=== PATIENT | female | born 2000 | race Caucasian/White ===

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

== ENCOUNTER 2022-05-15 17:53 | Outpatient (REF) | payer MEDICAID, SELFPAY ==
[2022-05-17 15:10] LABS: Chlamydia Result Negative (Negative); GC Result Negative (Negative)
== END 2022-05-15 17:54 | disposition home or self-care (01) ==
LOC: LBN 17:53
PROVIDERS: PCP Nurse Practitioner Pediatrics; Visit Provider Nurse Practitioner Women's Health
DX: Z11.3 Encounter for screening for infections with a predominantly sexual mode of transmission (principal)
CPT/HCPCS: 87491; 87591

== ENCOUNTER 2022-08-16 16:08 | Emergency (ER) | payer MEDICAID, SELFPAY ==
--- NOTE | 2022-08-16 16:00 | RT.EKG_ITS ---
APPROVED REPORT Exam: Resting ECG Reason for Exam: syncope Patient Location: E HR:68 bpm ECG Measurements Heart Rate 68 AXIS TN 112 P 37 QRSd 95 QRS -53 QT 384 T 55 QTc 407 Conclusion Sinus rhythm...normal P axis, V-rate 60- 99 Left axis deviation...QRS axis (-30,-90) Physician: no stemi, no delta waves, epsilon wave
[2022-08-16] MEDS: Normal Saline 1,000 ML 1000 ML IV (16:10)
[2022-08-16 16:11] VITALS: BP 104/59; PULSE 87; RESP 16; TEMP 36.4; O2SAT 98
[2022-08-16 16:16] VITALS: RESP 18
[2022-08-16 16:54] LABS: Abs Immature Grans 0.03 10^3/uL (0.0-0.06); Absolute Basophil Count 0.03 10^3/uL (0.0-0.2); Absolute Eosinophil Count 0.13 10^3/uL (0.0-0.7); Absolute Lymphocyte Count 3.53 10^3/uL (1.2-3.4); Absolute Monocyte Count 0.56 10^3/uL (0.1-0.8); Basophils % 0.3; Eosinophils % 1.3; HCT 40.9 % (36.0-46.0); HGB 13.9 g/dL (11.2-15.7); Immature Grans % 0.3; Lymphocytes % 34.7; MCV 91 fL (80-95); MPV 10.3 fL (8.0-11.0); Monocytes % 5.5; Neutrophils % 57.9; Platelet Count 241 10^3/uL (130-400); RBC 4.49 10^6/uL (3.93-5.22); RDW 12.6 % (11.7-14.6); RDW-SD 41.9 fL; WBC 10.18 10^3/uL (4.4-10.8)
--- NOTE | 2022-08-16 17:04 | W.ED.GENAD ---
Discharge Plan Disposition Patient Disposition: Home Condition: Good Discharge Details Chief Complaint: [id number] Clinical Impression: Syncope Primary Care Provider: Joyce Mari ED Provider: Lalito Crocker Home Meds and New Rx's Prescriptions: No Action Mirena 20 mcg/24 hours (7 yrs) 52 mg intrauterine device 1 device intrauterine ONCE Qty: 1 0RF Discharge Instructions Instructions: Syncope (ED) Additional Instructions: At this time your work-up has returned normal and is very reassuring. Please drink 10 to 12 cups of water per day, stay well-hydrated, stand up slowly. If you continue to have lightheadedness, please return for reevaluation or contact your primary care provider for further outpatient monitoring with a prolonged 48-hour cardiac Holter monitor. If you notice any worsening of your symptoms, or any new symptoms such as vomiting, diarrhea, fever, chills, shortness of breath, chest pain, numbness, weakness, or fainting , please return immediately to the emergency department for reevaluation. Please follow up with your primary care provider as soon as possible for reassessment and reevaluation. As always, it was a pleasure participating in your medical care today. Referrals: Joyce Mari, MALIKA [Primary Care Provider] - Medical Decision Making 21-year-old female with no significant past medical history aside for heavy periods, intrauterine contraception, presents today for evaluation of syncope. 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 She hit her right cheek. She was down for just a moment. No other significant trauma. She denies numbness tingling or weakness. She had EMS called, when they arrived she was slightly hypotensive, but this normalized by arrival. She denies chest pain or shortness of breath. No pleuritic chest pain. She denies any history of blood clots, long trips, surgeries or procedures. She has had an episode of syncope in the past when she was young, but no other episodes. No family history of sudden cardiac , or history of cardiac dysrhythmias. Exam demonstrates well-appearing female, no neurologic deficits, no evidence of significant trauma. No headache. Symptoms inconsistent with intracranial bleed. Symptoms likely secondary to mild dehydration. Patient states that she has not drunk much throughout the day at all. Cardiac etiology and blood clot less likely. Will get D-dimer, troponin, monitor closely and reassess. EKG shows no significant abnormalities. 5:49 PM Patient feels well, laboratory work-up unremarkable. D-dimer normal, cardiac work-up shows no significant abnormalities. Patient feels well and would like to go home. Patient was rehydrated. Symptoms inconsistent at this time with fatal dysrhythmia, PE, ACS, or significant electrolyte abnormality. Symptoms at this time are clinically consistent with a syncope likely related to mild dehydration. Will recommend continued hydration at home. Discussed red flags which to return. I have extensively reviewed the treatment plan and discharge instructions with the patient. I have addressed all patient concerns at this time. The patient was made aware of what symptoms to monitor for that would warrant a return to the emergency department. Discussed the plan with the patient, they demonstrate verbal understanding and agreement with our assessment and plan at this time. The documentation in this chart was dictated using [employer] dictation software. Please excuse any dictation errors. Sign Out No HPI General Date/Time Provider Initiated Documentation: 08/16/22 16:13. HPI Narrative: 21-year-old female with no significant past medical history aside for heavy periods, intrauterine contraception, presents today for evaluation of syncope. 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 She hit her right cheek. She was down for just a moment. No other significant trauma. She denies numbness tingling or weakness. She had EMS called, when they arrived she was slightly hypotensive, but this normalized by arrival. She denies chest pain or shortness of breath. No pleuritic chest pain. She denies any history of blood clots, long trips, surgeries or procedures. She has had an episode of syncope in the past when she was young, but no other episodes. No family history of sudden cardiac , or history of cardiac dysrhythmias. Related Data Home Medications Medication Instructions Recorded Confirmed levonorgestrel 20 mcg/24 hours (8 1 device intrauterine ONCE #1 ea 05/17/22 08/16/22 yrs) 52 mg intrauterine device (Mirena) Previous Rx's Medication Instructions Recorded levonorgestrel 20 mcg/24 hours (8 1 device intrauterine ONCE #1 ea 05/17/22 yrs) 52 mg intrauterine device (Mirena) Allergies Allergy/AdvReac Type Severity Reaction Status Date / Time No Known Allergies Allergy Verified 08/16/22 16:16 General Stated Complaint: [id number] KT: 3 Review of Systems All systems reviewed & are unremarkable except as noted in HPI and below PFSH All Active Problems (Updated 08/16/22 @ 17:51 by Lalito Crocker DO) Syncope (Chronic) IUD surveillance (Acute ~05/2022) Mirena Unintended weight loss (Acute) Insomnia (Acute) Anxiety (Chronic) Cannabis use disorder, moderate, in controlled environment (Acute) Positive depression screening (Acute) Pediatric body mass index (BMI) of 85th percentile to less than 95th percentile for age (Acute 05/29/17) Medical History Heavy periods Managed with Mirena Family History Mother Anxiety and depression Father No problems noted. Sister No problems noted. Social History Smoking/Tobacco Use Status: Current every day Tobacco Type: e-cigarettes Smokeless tobacco user: other Second Hand Exposure: Yes Smoking risk assessment performed?: Yes Alcohol Intake: never Drug use: Never Substance use type: marijuana Education Level: high school Details: [employer] 2019 Pets and animals: Yes Pets and animals: cat(s) and dog(s) Do you feel safe at home: Yes Do you feel safe in your relationship?: Yes Additional Social history: has a twin sister Aissatou Female Reproductive History Menstrual control method: implanted History History 0 Para Hx # Term Pregnancies Multiple births Hx # Pregnancies Ectopic pregnancies AB induced Hx Number of Living Children AB spontaneous Exam Narrative Exam Narrative: 1.Const: Well-nourished, Well-developed, appearing stated age 2.Eyes: PERRL, no conjunctival injection, and symmetrical lids. 3.ENT: Atraumatic external nose and ears. Moist MM. Neck: Symmetric, trachea midline, No thyromegaly. There is no evidence of raccoon eyes, rowell sign, CSF rhinorrhea, mastoid tenderness, cranial crepitus, hemotympanum, exophthalmos, or hyphema. Patient demonstrates intact dentition with no signs of tooth avulsion or fracture, no signs of jaw deformity, no evidence of a LeFort's fracture, with an intact palate, nose and orbital region. There is no evidence of a nasal septal hematoma. No proptosis. Jaw closes symmetrically. Airway is clear. 4.CVS: +S1/S2, No murmurs or gallops. Peripheral pulses 2+ and equal in all extremities. Brisk capillary refill in all extremities. 5.RESP: Unlabored respiratory effort. Clear to auscultation bilaterally. No wheezes rales or rhonchi 6.GI: Soft, Nontender/Nondistended, No hepatosplenomegaly. No guarding or rebound. 7.MSK: Normocephalic/Atraumatic, Extremities w/o deformity or ttp No cyanosis or clubbing, Normal movement of all extremities 8.Skin: Warm, Dry. No rashes or lesions. 9.Neuro: health outcomes liaison II-XII grossly intact. Sensation grossly intact, no focal neurologic deficits. All 6 cardinal planes of vision are fully intact. No evidence of rotatory or vertical nystagmus. The patient demonstrated a normal [id number]-gwis-epzybj, good dexterity. There was no evidence of dysdiadochokinesia. Patient was able to ambulate without difficulty. There was no wide-based gait. Romberg testing was normal. [id number] testing was normal. Sensation was intact bilaterally as well as muscle strength bilaterally for all extremities. Patient was able to verbalize butter cup with no slurring, or miss pronunciation. 10.Psych: (AAO) x3. Appropriate mood and affect Course Vital Signs Vital signs: Vital Signs Temperature 36.4 C 08/16/22 16:11 Pulse 87 08/16/22 16:11 Respiratory Rate 16 08/16/22 16:11 Blood Pressure 104/59 L 08/16/22 16:11 Pulse Oximetry 98 08/16/22 16:11 Temperature 36.4 C 08/16/22 16:11 Temperature Source Oral 08/16/22 16:11 Pulse 87 08/16/22 16:11 Respiratory Rate 18 08/16/22 16:16 Respiratory Effort Non-Labored 08/16/22 16:16 Respiratory Depth Normal 08/16/22 16:16 Respiratory Pattern Normal 08/16/22 16:16 Blood Pressure 104/59 L 08/16/22 16:11 Blood Pressure Position Sitting 08/16/22 16:11 Pulse Oximetry 98 08/16/22 16:11 Oxygen Delivery Method Room Air 08/16/22 16:11 Oxygen Flow Rate 0 08/16/22 16:11 Pain Level 2 08/16/22 16:11 Lab/Test Results Lab/Test Results: Laboratory Tests Range/Units 08/16/22 16:20 WBC (4.4-10.8) 10^3/uL 10.18 RBC (3.93-5.22) 10^6/uL 4.49 Hgb (11.2-15.7) g/dL 13.9 Hct (36.0-46.0) % 40.9 MCV (80-95) fL 91 MCH (27.0-33.0) pg 31.0 MCHC (32.0-36.0) % 34.0 RDW (11.7-14.6) % 12.6 Plt Count (130-400) 10^3/uL 241 MPV (8.0-11.0) fL 10.3 Immature Gran % 0.3 Neutrophils % 57.9 Lymphocytes % 34.7 Monocytes % 5.5 Eosinophils % 1.3 Basophils % 0.3 Nucleated RBC % (0.0-0.3) % 0.0 Absolute Neutrophils (1.2-6.7) 10^3/uL 5.90 Absolute Lymphocytes (1.2-3.4) 10^3/uL 3.53 H Absolute Monocytes (0.1-0.8) 10^3/uL 0.56 Absolute Eosinophils (0.0-0.7) 10^3/uL 0.13 Absolute Basophils (0.0-0.2) 10^3/uL 0.03 POCUS Exam (ED) Limited Cardiac Exam DATE OF EXAM: 08/16/22 TIME OF EXAM: 17:08 PROVIDER THAT PERFORMED THE STUDY: Lalito Crocker REASON FOR EXAM: Syncope VISUALIZED STRUCTURES: Left atrium, Left ventricle and Right ventricle VIEW OBTAINED: Parasternal long-axis PERTINENT FINDINGS/IMPRESSION: No apparent abnormalities Exam complete
[2022-08-16 17:15] LABS: ALT 20 U/L (14-59); AST 14 U/L (15-37); Albumin 4.2 g/dL (3.4-5.0); Alkaline Phosphatase 68 U/L (46-116); Anion Gap 7.7 mmol/L (3-11); BUN 13 mg/dL (7-18); Bilirubin, Total 0.5 mg/dL (0.2-1.0); CO2 28.3 mmol/L (21.0-32.0); CREATININE 0.8 mg/dL (0.55-1.02); Calcium 9.3 mg/dL (8.5-10.1); Chloride 101 mmol/L (98-107); Estimated GFR 108.78 (mL/min/1.73m2); Glucose 100 mg/dL (74-106); Potassium 3.4 mmol/L (3.5-5.1); Sodium 137 mmol/L (136-145); Total Protein 8.1 g/dL (6.4-8.2); Troponin I < 50 ng/L (<or=60)
[2022-08-16 17:26] LABS: D-Dimer 170 ng/mlFEU (<500)
[2022-08-16 17:55] LABS: Bilirubin Negative (Negative); Blood Negative (Negative); Clarity Clear (Clear); Glucose Negative (Negative); Ketones Negative (Negative); Leukocyte Esterase Negative (Negative); Nitrite Negative (Negative); Specific Gravity 1.025 (1.005-1.025); Urobilinogen 0.2 EU/dL (Up TO 0.2)
[2022-08-16 18:00] VITALS: BP 103/60; PULSE 81; RESP 16; TEMP 37; O2SAT 98
[2022-08-16 18:08] LABS: Epithelial Cells Many HPF (Negative); RBC 0-2 HPF (0-2); WBC 0-2 HPF (0-5)
[2022-08-16 18:09] LABS: Bacteria Few HPF (Negative); C & S Indicated? No/Sq. Contamination; Casts 0-2 Hyaline LPF (Negative); Crystals Negative HPF (Negative); Mucus Moderate (Negative)
== END 2022-08-16 18:41 | disposition home or self-care (01) ==
PROVIDERS: Emergency Provider Student in an Organized Health Care Education/Training Program; PCP Nurse Practitioner Pediatrics
DX: R55 Syncope and collapse (principal)
CPT/HCPCS: 80053; 81025; 93005; 93308; 96360; 99284; 81003; 81015; 84484; 85025; 85379; 93010

== ENCOUNTER 2023-01-26 17:02 | Emergency (ER) | payer MEDICAID, SELFPAY ==
[2023-01-26 17:07] VITALS: BP 122/80; PULSE 90; RESP 18; TEMP 36.8; O2SAT 99
--- NOTE | 2023-01-26 17:15 | DI.RAD_ITS ---
Exam(s) XR ELBOW LT COMPLETE EXAM: XR ELBOW LT COMPLETE CLINICAL HISTORY: left elbow pain. TECHNIQUE: 2D digital imaging was performed. Three views. COMPARISON: CR RIGHT WRIST COMPLETE from 03/21/2012 FINDINGS: BONES: No acute fracture is present. No bony destructive lesion is seen. JOINTS: The elbow is normally aligned. No joint effusion is seen. SOFT TISSUE: Normal. IMPRESSION: Unremarkable radiographs of the left elbow. DATA REPOSITORY: RADIATION DOSE DELIVERED:
--- NOTE | 2023-01-26 17:53 | ED.GENADUL_ITS ---
Discharge Plan Disposition Patient Disposition: Home Discharge Details Clinical Impression: Elbow pain, left Primary Care Provider: Suzette Rivas ED Provider: Jacque Barraza Home Meds and New Rx's Prescriptions: Continued Mirena 20 mcg/24 hours (7 yrs) 52 mg intrauterine device 1 device intrauterine ONCE Qty: 1 0RF Discharge Instructions Additional Instructions: Ibuprofen and Tylenol as needed for pain Rest your elbow Repeat x-ray in 1 week should you have persistent symptoms Referrals: Suzette Rivas MD [Primary Care Provider] - Discharge Data Discharge Date/Time-TO BE ENTERED AT DEPARTURE: 01/26/23 18:17 Medical Decision Making 22-year-old female presents with left elbow injury X-ray was ordered for further evaluation, does not show evidence of acute abnormality Per radiology interpretation and my review Radiology interpretation my review repeat x-ray in 1 week with persistent symptoms recommended Offered sling, patient declined Return precautions reviewed and patient expressed understanding HPI General Date/Time Provider Initiated Documentation: 01/26/23 17:18 . HPI Narrative: This 22-year-old female presents with report of fall on outstretched hand, injuring her left elbow at work just prior to arrival. Denies any additional injuries or chance of . Denies any strength or sensation change. Related Data Home Medications Medication Instructions Recorded Confirmed levonorgestrel 21 mcg/24 hours (8 1 device intrauterine ONCE #1 ea 05/17/22 08/16/22 yrs) 52 mg intrauterine device (Mirena) Previous Rx's Medication Instructions Recorded levonorgestrel 21 mcg/24 hours (8 1 device intrauterine ONCE #1 ea 05/17/22 yrs) 52 mg intrauterine device (Mirena) Allergies Allergy/AdvReac Type Severity Reaction Status Date / Time No Known Allergies Allergy Verified 01/26/23 17:15 General Stated Complaint: Orthopedic KT: 4 PFSH All Active Problems (Updated 01/26/23 @ 18:06 by BAYLEE Gil) Elbow pain, left (Acute) IUD surveillance (Acute ~05/2022) Mirena Unintended weight loss (Acute) Insomnia (Acute) Anxiety (Chronic) Cannabis use disorder, moderate, in controlled environment (Acute) Positive depression screening (Acute) Pediatric body mass index (BMI) of 85th percentile to less than 95th percentile for age (Acute 05/29/17) Medical History Heavy periods Managed with Mirena Family History Mother Anxiety and depression Father No problems noted. Sister No problems noted. Social History Smoking/Tobacco Use Status: Current every day Tobacco Type: e-cigarettes Smokeless tobacco user: other Second Hand Exposure: Yes Smoking risk assessment performed?: Yes Alcohol Intake: never Drug use: Never Substance use type: marijuana Education Level: high school Details: [employer] senior 2019 Pets and animals: Yes Pets and animals: cat(s) and dog(s) Do you feel safe at home: Yes Do you feel safe in your relationship?: Yes Additional Social history: has a twin sister Aissatou Female Reproductive History Menstrual control method: implanted History History 0 Para Hx # Term Pregnancies Multiple births Hx # Pregnancies Ectopic pregnancies AB induced Hx Number of Living Children AB spontaneous Exam Narrative Exam Narrative: Left elbow with mild tenderness, neurovascularly intact, no swelling, no tenderness to left shoulder and left wrist Course Vital Signs Vital signs: Vital Signs Temperature 36.8 C 01/26/23 17:07 Pulse 90 01/26/23 17:07 Respiratory Rate 18 01/26/23 17:07 Blood Pressure 122/80 01/26/23 17:07 Pulse Oximetry 99 01/26/23 17:07 Temperature 36.8 C 01/26/23 17:07 Temperature Source Oral 01/26/23 17:07 Pulse 90 01/26/23 17:07 Respiratory Rate 18 01/26/23 17:07 Respiratory Effort Normal, Non-Labored 01/26/23 17:09 Blood Pressure 122/80 01/26/23 17:07 Blood Pressure Position Sitting 01/26/23 17:07 Pulse Oximetry 99 01/26/23 17:07 Oxygen Delivery Method Room Air 01/26/23 17:07 Oxygen Flow Rate 0 01/26/23 17:07 Pain Level 6 01/26/23 17:07 Lab/Test Results Lab/Test Results: POC- Test(urine) Negative
--- NOTE | 2023-01-26 18:12 | DI.VRAD_ITS ---
PROCEDURE INFORMATION: Exam: XR Left Elbow Exam date and time: 01/26/2023 5:45 PM Age: 22 years old Clinical indication: Injury or trauma; Other: Left elbow pain TECHNIQUE: Imaging protocol: Radiologic exam of the left elbow. Views: 3 or more views. COMPARISON: No relevant prior studies available. FINDINGS: Bones/joints: Normal. Soft tissues: Normal. IMPRESSION: No acute findings. Dictated and Authenticated by: Hal Arredondo MD. Ordering:ANDREW Santillan MD
== END 2023-01-26 18:17 | disposition home or self-care (01) ==
PROVIDERS: Emergency Provider Physician Assistant; PCP Student in an Organized Health Care Education/Training Program
DX: M25.522 Pain in left elbow (principal)
CPT/HCPCS: 99283; 73080

== ENCOUNTER 2023-03-22 22:26 | Emergency (ER) | payer SELFPAY ==
[2023-03-22 22:31] VITALS: BP 117/62; PULSE 78; RESP 16; TEMP 35.9; O2SAT 98
[2023-03-22 22:43] LABS: Bilirubin Negative (Negative); Blood Large (Negative); Clarity Clear (Clear); Glucose Negative (Negative); Ketones Trace mg/dL (Negative); Leukocyte Esterase Negative (Negative); Nitrite Negative (Negative); Specific Gravity >= 1.030 (1.005-1.025); Urobilinogen 0.2 mg/dL (Up to 0.2)
--- NOTE | 2023-03-22 22:45 | DI.CT_ITS ---
Exam(s) CT ABDOMEN PELVIS WO EXAM: CT ABDOMEN PELVIS WO CLINICAL HISTORY: Flank pain, Hematuria. TECHNIQUE: Imaging Protocol: Axial computed tomography images with coronal and sagittal reformatted images were created and reviewed. Oral: / no COMPARISON: No exams were available for comparison FINDINGS: ABDOMEN: Lung Bases: Normal where visualized. Liver: Normal density. No measurable mass. Gallbladder and biliary tract: No radiodense calculus or dilation. Pancreas: Normal density, no abnormal calcifications or inflammatory process. Spleen: Normal. Kidneys: Normal size, contour and axis. No radiodense stones or obstructive uropathy. No masses seen. Adrenal glands: No masses seen. Lymph nodes: Within normal limits. Abdominal Aorta: Abdominal portion non-dilated. PELVIS: Bladder: Nearly empty. Question of wall thickening versus under distension. Bowel: No obstruction or bowel wall thickening. Moderate quantity of stool. Appendix normal. Radi opaque density seen in stomach and bowel of left mid abdomen likely ingested tablets. Quadrant Peritoneal cavity: No ascites, collection or mesenteric inflammatory response. Reproductive organs: IUD Bones: Within normal limits. IMPRESSION: No evidence of urinary tract calculi or hydronephrosis. Question of mild diffuse small ladder wall t hickening versus under distension. RADIATION DOSE DELIVERED: 555.88mGy.cm Total DLP DATA REPOSITORY: All CT scans at this facility are submitted to the National Radiology Data Registry (NRDR) Dose Index Registry (DIR) with the [employer] (ACR). RADIATION OPTIMIZATION: All CT scans at this facility use at least one of these dose optimization te chniques: automated exposure control; mA and/or kV adjustment per patient size (includes targeted exa ms where dose is matched to clinical indication); or iterative reconstruction.
--- NOTE | 2023-03-22 22:47 | ED.GENADUL_ITS ---
Discharge Plan Disposition Patient Disposition: Home Condition: Stable Discharge Details Clinical Impression: Dysuria, Hematuria Primary Care Provider: Suzette Rivas ED Provider: Rahel Ram Home Meds and New Rx's Prescriptions: No Action Mirena 20 mcg/24 hours (7 yrs) 52 mg intrauterine device 1 device intrauterine ONCE Qty: 1 0RF Discharge Instructions Instructions: Hematuria (ED), Dysuria (ED) Additional Instructions: Follow up with primary care provider in 3-5 days. Return to ED sooner if any worsening or concerns. Increase oral fluids. The antibiotic as directed with yogurt or probiotic. You have some blood in your urine however with your symptoms I am treating you for possible urinary tract infection. CT results are pending at this time. If we need to we will call you. Stand Alone Forms: Work Release Referrals: Keri Sultana DNP [NURSE PRACTITIONER] - 2 weeks Suzette Rivas MD [Primary Care Provider] - Discharge Data Discharge Date/Time-TO BE ENTERED AT DEPARTURE: 03/22/23 23:52 Medical Decision Making 22-year-old female presents with 3 days of dysuria hesitancy and noted hematuria. No vomiting. She has been taking Azo [id number]. Denies any other associated symptoms or complaints. She does have a history of anxiety insomnia does have an IUD. Urinalysis shows large blood, trace ketones, 100 protein negative for leukocytes or nitrites 10-[address] abdomen pelvis to rule out kidney stone. CT abdomen pelvis shows no kidney stones however does have a thickened bladder wall which could be cystitis which is correlating clinically with patient presentation. Patient given cephalexin treated for UTI. Discussed home care follow-up care if needed she verbalizes understanding. This text was generated using Kuap[employer] system, please disregard any oddities of phrase or misspellings. Lab Data Lab results reviewed: Yes I reviewed the patient's lab results. Labs: Laboratory Tests Range/Units 03/22/23 22:32 Urine Color (Yellow) Yellow Urine Clarity (Clear) Clear Urine pH (5-8) 6.0 Ur Specific [place] (1.005-1.025) >= 1.030 H Urine Protein (Negative) mg/dL 100 H Urine Ketones (Negative) mg/dL Trace H Urine Blood (Negative) Large H Urine Nitrite (Negative) Negative Urine Bilirubin (Negative) Negative Urine Urobilinogen (Up to 0.2) mg/dL 0.2 Ur Leukocyte Esterase (Negative) Negative Urine RBC (0-2) HPF 10-20 H Urine WBC (0-5) HPF 0-2 Ur Epithelial Cells (Negative) HPF Few Urine Crystals (Negative) HPF Negative Urine Bacteria (Negative) HPF Few Urine Casts (Negative) LPF Negative Urine Mucus (Negative) Negative Ur Culture Indicated? No Urine Glucose (Negative) mg/dL Negative HPI General Mode of arrival: ambulatory . Date/Time Provider Initiated Documentation: 03/22/23 22:40 . Limitations to Documentation: no limitations . Information obtained by: patient, RN notes reviewed and old records reviewed . HPI Narrative: 22-year-old female presents with 3 days of dysuria hesitancy and noted hematuria. No vomiting. She has been taking Azo [id number]. Denies any other associated symptoms or complaints. She does have a history of anxiety insomnia does have an IUD. Related Data Home Medications Medication Instructions Recorded Confirmed levonorgestrel 21 mcg/24 hours (8 1 device intrauterine ONCE #1 ea 05/17/22 03/22/23 yrs) 52 mg intrauterine device (Mirena) Previous Rx's Medication Instructions Recorded levonorgestrel 21 mcg/24 hours (8 1 device intrauterine ONCE #1 ea 05/17/22 yrs) 52 mg intrauterine device (Mirena) Allergies Allergy/AdvReac Type Severity Reaction Status Date / Time No Known Allergies Allergy Verified 03/22/23 22:39 General Stated Complaint: Urinary KT: 4 Review of Systems All systems reviewed & are unremarkable except as noted in HPI and below Genitourinary Genitourinary: Reports as per HPI, Reports hematuria, Reports flank pain (Bilateral lower back pain), Reports urinary hesitancy and Reports urinary urgency PFSH All Active Problems (Updated 03/22/23 @ 23:38 by Rahel Ram NP) Dysuria (Acute) Hematuria (Acute) IUD surveillance (Acute ~05/2022) Mirena Unintended weight loss (Acute) Insomnia (Acute) Anxiety (Chronic) Cannabis use disorder, moderate, in controlled environment (Acute) Positive depression screening (Acute) Pediatric body mass index (BMI) of 85th percentile to less than 95th percentile for age (Acute 05/29/17) Medical History Heavy periods Managed with Mirena Family History Mother Anxiety and depression Father No problems noted. Sister No problems noted. Social History Smoking/Tobacco Use Status: Current every day Tobacco Type: e-cigarettes Smokeless tobacco user: other Second Hand Exposure: Yes Smoking risk assessment performed?: Yes Alcohol Intake: current Alcohol Intake frequency: holidays/special occasions only Drug use: Occasionally Substance use type: marijuana Education Level: high school Details: [employer] senior 2019 Pets and animals: Yes Pets and animals: cat(s) and dog(s) Do you feel safe at home: Yes Do you feel safe in your relationship?: Yes Additional Social history: has a twin sister Aissatou Female Reproductive History Menstrual control method: implanted History History 0 Para Hx # Term Pregnancies Multiple births Hx # Pregnancies Ectopic pregnancies AB induced Hx Number of Living Children AB spontaneous Exam Narrative Exam Narrative: Constitutional: Alert and oriented x3. Appears stated age. Normal body habitus. Head: Normocephalic, no trauma. Eyes: Pupils PERRL, Red reflex noted, EOM's intact. Eyelids symmetrical without lesions, discharge, or swelling. ENT: Bilateral TM's WNL, External ear normal to inspection, no mastoid TTP, swelling, or erythema, Nasal turbinates WNL, no nasal discharge. Normal dentition, Posterior pharynx WNL, no exudate. Chest: RRR, Normal S1, S2, distal pulses intact. Resp: Lungs clear to auscultation bilaterally, no wheezes, rales, or rhonchi. Abdomen: Soft, non-distended, Normoactive bowel sounds all 4 quads. Musculoskeletal: Normal gait, 5/5 strength to all four extremities. Skin: No suspicious rashes or lesions. Capillary refill less than 2 sec. Neurologic: Cranial nerves II-XII intact. Alert and oriented x 3. Motor: No deficits noted. Sensory: Intact bilaterally all 4 extremities. Reflexes: DTR's intact bilaterally.. Hematologic/Lymphatic: No ecchymosis, no lymphadenopathy. Course Vital Signs Vital signs: Vital Signs Temperature 35.9 C L 03/22/23 22:31 Pulse 78 03/22/23 22:31 Respiratory Rate 16 03/22/23 22:31 Blood Pressure 117/62 03/22/23 22:31 Pulse Oximetry 98 03/22/23 22:31 Temperature 35.9 C L 03/22/23 22:31 Temperature Source Tympanic 03/22/23 22:31 Pulse 78 03/22/23 22:31 Respiratory Rate 16 03/22/23 22:31 Respiratory Effort Normal 03/22/23 22:31 Blood Pressure 117/62 03/22/23 22:31 Blood Pressure Position Sitting 03/22/23 22:31 Pulse Oximetry 98 03/22/23 22:31 Oxygen Delivery Method Room Air 03/22/23 22:31 Oxygen Flow Rate 0 03/22/23 22:31 Pain Level 4 03/22/23 22:40 Lab/Test Results Lab/Test Results: Laboratory Tests Range/Units 03/22/23 22:32 Urine Color (Yellow) Yellow Urine Clarity (Clear) Clear Urine pH (5-8) 6.0 Ur Specific [place] (1.005-1.025) >= 1.030 H Urine Protein (Negative) mg/dL 100 H Urine Ketones (Negative) mg/dL Trace H Urine Blood (Negative) Large H Urine Nitrite (Negative) Negative Urine Bilirubin (Negative) Negative Urine Urobilinogen (Up to 0.2) mg/dL 0.2 Ur Leukocyte Esterase (Negative) Negative Urine Glucose (Negative) mg/dL Negative
[2023-03-22 22:50] LABS: Bacteria Few HPF (Negative); C & S Indicated? No; Casts Negative LPF (Negative); Crystals Negative HPF (Negative); Epithelial Cells Few HPF (Negative); Mucus Negative (Negative); WBC 0-2 HPF (0-5)
[2023-03-22] MEDS: Ibuprofen 600 MG TAB PO (22:57)
[2023-03-22] MEDS: Cephalexin 500 MG CAP, 2 CAPS/BTL PO (23:49)
[2023-03-22] MEDS: Cephalexin 500 MG CAP PO (23:49)
--- NOTE | 2023-03-22 23:54 | DI.VRAD_ITS ---
PROCEDURE INFORMATION: Exam: CT Abdomen And Pelvis Without Contrast Exam date and time: 03/22/2023 11:08 PM Age: 22 years old Clinical indication: Other: Flank pain, hematuria TECHNIQUE: Imaging protocol: Computed tomography of the abdomen and pelvis without contrast. COMPARISON: No relevant prior studies available. FINDINGS: Lungs: The lungs are normal. There is no evidence of focal pulmonary consolidation. Pleural spaces: There is no evidence of pneumothorax. There are no pleural effusions present. Heart: The cardiac structures are normal. Liver: There are no focal liver lesions present. There is no evidence of intrahepatic or extrahepatic biliary ductal dilation. Gallbladder and bile ducts: The gallbladder is normal. There is no cholelitiasis, wall thickening or pericholecystic fluid to suggest cholecystitis. Pancreas: The pancreas is normal. Spleen: The spleen is normal. Adrenal glands: The adrenal glands are normal. Kidneys and ureters: The kidneys are normal. Stomach and bowel: There is no evidence of intestinal obstruction. No diverticulitis is present. There is a discoid radiopaque foreign body left lower quadrant contained within bowel measuring approximately 11 mm in diameter. There is a similar object present within the stomach. Appendix: A normal appendix is identified. There is no evidence of distention or periappendiceal inflammation to suggest appendicitis. Intraperitoneal space: There is no free intraperitoneal air. There is no evidence of free intraperitoneal or pelvic fluid. There are no soft tissue masses or fluid collections. Vasculature: The aorta is normal without evidence of significant atherosclerosis or aneurysmal disease. The peripheral arterial vascular system visualized is unremarkable. The portal venous system visualized is unremarkable. The venous system visualized is unremarkable. Lymph nodes: There is no evidence of lymphadenopathy. Urinary bladder: The bladder is normal. There is nonspecific bladder wall thickening. This may be related to incomplete bladder filling. Cystitis is not excluded. Reproductive: The uterus is normal. The ovaries are normal. There is an IUD present. Bones/joints: The skeletal structures show no evidence of fracture or other acute processes. Soft tissues: The extra-abdominal soft tissues are normal. IMPRESSION: 1. There is nonspecific bladder wall thickening. This may be related to incomplete bladder filling. Cystitis is not excluded. 2. There is a discoid radiopaque foreign body left lower quadrant contained within bowel measuring approximately 11 mm in diameter. There is a similar object present within the distal stomach. Dictated and Authenticated by: Alex Boyce MD. Ordering:TIAN Mcginnis MD
== END 2023-03-22 23:52 | disposition home or self-care (01) ==
PROVIDERS: Emergency Provider Registered Nurse Emergency; PCP Student in an Organized Health Care Education/Training Program
DX: R30.0 Dysuria (principal); R31.9 Hematuria, unspecified
CPT/HCPCS: 81025; 99284; 74176; 81003; 81015

== ENCOUNTER 2023-09-03 20:29 | Emergency (ER) | payer OTHER, SELFPAY ==
[2023-09-03 20:35] VITALS: BP 130/59; PULSE 69; RESP 18; TEMP 36.9; O2SAT 99
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
[2023-09-03] MEDS: Ibuprofen 400 MG TAB PO (22:09)
[2023-09-03] MEDS: Acetaminophen 500 MG TAB PO (22:09)
== END 2023-09-03 22:09 | disposition home or self-care (01) ==
PROVIDERS: Emergency Provider Emergency Medicine; PCP Student in an Organized Health Care Education/Training Program
DX: T22.212A Burn of second degree of left forearm, initial encounter (principal); X10.2XXA Contact with fats and cooking oils, initial encounter; Y93.G3 Activity, cooking and baking; Y92.511 Restaurant or cafe as the place of occurrence of the external cause; Y99.0 Civilian activity done for income or pay
CPT/HCPCS: 16020; 99283

== ENCOUNTER 2024-06-10 15:59 | Outpatient (REF) | payer SELFPAY ==
--- NOTE | 2024-06-10 15:30 | PAPFT_PTH ---
PATIENT: Elliott Marcus #:[id number] LOC: [facility] U#:[id number] AGE/SX: 23/F ROOM: RE06/10/[address]: Deyanira Hillman NP : 2000 BED: DIS: 06/10/2024 SPEC #: [id number] RECD: 06/10/24 17:30 STATUS: AGUSTIN REConor #: [id number] SOPHIA: 06/10/24 15:[address]: Deyanira Hillman NP [facility] Cytology RECD BY: Jacque Santana ENTERED: 06/10/24 17:30 SP TYPE: PAPFT OTHR DR: Suzette Rivas MD Tissues: 1 - CX/ENDOCX FOR PAP SMEARS Procedures: PAP THIN PREP/[facility] Screening HPV DNA PROBE Comments: [id number] (HPV 16 & 18/45) (CHLAMYDIA/GC)
[2024-06-11 11:50] LABS: Chlamydia Result Negative (Negative); GC Result Negative (Negative)
[2024-06-12 11:18] LABS: HSV 1 DNA Result Negative (Negative); HSV 2 DNA Result Positive (Negative)
== END 2024-06-10 16:00 | disposition home or self-care (01) ==
LOC: LBN 15:59
PROVIDERS: PCP Student in an Organized Health Care Education/Training Program; Visit Provider Nurse Practitioner Women's Health
DX: Z12.4 Encounter for screening for malignant neoplasm of cervix (principal)
CPT/HCPCS: 87491; 87529; 87591; 88142; 86695; 86696; 87624